=== PATIENT | female | born 1980 | race Caucasian/White ===

== ENCOUNTER 2019-05-18 21:58 | Emergency (ER) | payer OTHER ==
[~2019-05-18] VITALS: Ht 149.9 cm; Wt 77.6 kg
[2019-05-18 22:05] VITALS: BP 155/97; Ht 149.9 cm; Wt 77.6 kg
== END 2019-05-18 22:30 | disposition home or self-care (01) ==
LOC: ED 21:58
DX: L25.9 Unspecified contact dermatitis, unspecified cause (principal)